=== PATIENT | female | born 1970 | race Caucasian/White ===

== ENCOUNTER 2024-11-13 14:34 | Inpatient (IN) | payer OTHER ==
[~2024-11-13] VITALS: Ht 167.6 cm; Wt 147.4 kg
[2024-11-13 16:54] LABS: BASOPHILS # (AUTO) 0.1 (0.0-0.1); BASOPHILS % 0.3 % (0.0-1.0); EOSINOPHILS # (AUTO) 0.2 (0.0-0.4); EOSINOPHILS % 1.2 % (0.0-6.0); HEMATOCRIT 37.3 % (34.2-44.1); HEMOGLOBIN 12.5 g/dL (12.0-16.0); LYMPHOCYTES # (AUTO) 0.9 (1.0-3.2); LYMPHOCYTES % 5.2 % (18.0-39.1); MEAN CORPUSCULAR HEMOGLOBIN 30.3 pg (28-32); MEAN CORPUSCULAR HGB CONC 33.5 g/dL (31-35); MEAN CORPUSCULAR VOLUME 90.5 fL (81-99); MONOCYTES # (AUTO) 0.8 (0.2-0.8); MONOCYTES % 4.8 % (4.4-11.3); NEUTROPHILS # (AUTO) 14.2 (2.1-6.9); NEUTROPHILS % 86.2 % (38.7-80.0); PLATELET COUNT 242 x10e3/uL (140-360); RED BLOOD COUNT 4.12 x10e6/uL (3.6-5.1); RED CELL DISTRIBUTION WIDTH 14.9 % (11.7-14.4)
[2024-11-13 17:09] LABS: INR 1.01; PROTHROMBIN TIME 13.9 seconds (11.9-14.5)
[2024-11-13 17:10] LABS: PARTIAL THROMBOPLASTIN TIME 28.2 seconds (23.8-35.5)
[2024-11-13 17:18] LABS: ALANINE AMINOTRANSFERASE 8 IU/L (0-55); ALBUMIN 2.3 g/dL (3.5-5.0); ALBUMIN/GLOBULIN RATIO 0.5 (0.8-2.0); ALKALINE PHOSPHATASE 91 IU/L (40-150); ANION GAP 15.2 mmol/L (8-16); BILIRUBIN,TOTAL 0.4 mg/dL (0.2-1.2); BLOOD UREA NITROGEN 18 mg/dL (7-26); BUN/CREATININE RATIO 19 (6-25); CALCIUM 8.9 mg/dL (8.4-10.2); CARBON DIOXIDE 16 mmol/L (22-29); CHLORIDE 106 mmol/L (98-107); CREATININE, SERUM 0.96 mg/dL (0.57-1.11); EST GLOMERULAR FILTRATION RATE 71 ML/MIN (>=60); GLUCOSE 120 mg/dL (74-118); MAGNESIUM 1.3 MG/DL (1.3-2.1); POTASSIUM 4.2 mmol/L (3.5-5.1); SODIUM 133 mmol/L (136-145); TOTAL PROTEIN 6.9 g/dL (6.5-8.1)
[2024-11-13 17:26] LABS: TROPONIN I < 0.001 ng/mL (0-0.300)
[2024-11-13] MEDS: Morphine 4mg INJECTION 4 MG/ML INJ IV STA (17:47)
[2024-11-13] MEDS: SODIUM CHLORIDE 0.9% 1000ML 1,000 ML IV STA ×2 (17:47→19:11)
[2024-11-13] MEDS: ONDANSETRON HCL INJ 2MG/ML 2ML 2 MG/ML VIAL IV STA (17:48)
[2024-11-13] MEDS: VANCOMYCIN 1.25GM/250 ML (PEG) 250 ML IV ONE (17:49)
[2024-11-13] MEDS ORDERED: IOPAMIDOL 370 MG/ML 100 ML INFUS..BTL INJ ONE (19:17)
[2024-11-13] MEDS: ACETAMINOPHEN 325 MG TAB PO PRN (19:25)
[2024-11-13] MEDS: SODIUM CHLORIDE 0.9% 1000ML 1,000 ML IV ONE (21:46)
[2024-11-13] MEDS: NOREPINEPHRINE 8 MG/D5W 250 ML 250 ML IV SCH (22:00)
[2024-11-13] MEDS ORDERED: SODIUM CHLORIDE 0.9% IV SCH (22:00)
[2024-11-13] MEDS: MUPIROCIN 2% OINT 22 GM TUBE TOP SCH (22:00)
[2024-11-13 22:55] VITALS: TEMP 98.4
[2024-11-13] MEDS: KETOROLAC TROMETHAMINE 30 MG/ML VIAL IV STA (23:21)
[2024-11-13] MEDS: SODIUM CHLORIDE 0.9% 1000ML 1,000 ML IV SCH (23:23)
[2024-11-13 23:26] VITALS: PULSE 75; RESP 20
[2024-11-13 23:45] VITALS: BP_SYST 92; BP_DIAS 49; BP_DIAS 67; PULSE 77; RESP 14; RESP 25; TEMP 98.2; O2SAT 94; O2SAT 97
[2024-11-13] MEDS: Morphine 4mg INJECTION 4 MG/ML INJ IV PRN (23:49)
[2024-11-14] VITALS (20 sets, daily range): BP systolic 87–117; BP diastolic 49–83; PULSE 70–91; RESP 14–28; TEMP 98.2–98.9; O2SAT 89–98
[2024-11-14] MEDS: VANCOMYCIN 1.25GM/250 ML (PEG) 250 ML IV SCH (03:33)
[2024-11-14] MEDS: VANCOMYCIN HCL 1.25 GM VIAL IV ONE (03:35)
[2024-11-14] MEDS: SODIUM CHLORIDE 0.9% 250ML 250 ML ONE (03:35)
[2024-11-14 06:41] LABS: BASOPHILS % 0.1 % (0.0-1.0); EOSINOPHILS # (AUTO) 0.2 (0.0-0.4); EOSINOPHILS % 1.2 % (0.0-6.0); HEMATOCRIT 33.2 % (34.2-44.1); HEMOGLOBIN 10.9 g/dL (12.0-16.0); LYMPHOCYTES % 6.5 % (18.0-39.1); MEAN CORPUSCULAR HEMOGLOBIN 30.2 pg (28-32); MEAN CORPUSCULAR HGB CONC 32.8 g/dL (31-35); MONOCYTES # (AUTO) 0.7 (0.2-0.8); MONOCYTES % 4.6 % (4.4-11.3); NEUTROPHILS # (AUTO) 12.6 (2.1-6.9); NEUTROPHILS % 85.6 % (38.7-80.0); PLATELET COUNT 205 x10e3/uL (140-360); RED BLOOD COUNT 3.61 x10e6/uL (3.6-5.1); RED CELL DISTRIBUTION WIDTH 15.1 % (11.7-14.4); WHITE BLOOD COUNT 14.75 x10e3/uL (4.8-10.8)
[2024-11-14 07:03] LABS: BILIRUBIN,TOTAL 0.5 mg/dL (0.2-1.2); CALCIUM 8.2 mg/dL (8.4-10.2); CREATININE, SERUM 0.81 mg/dL (0.57-1.11); TOTAL PROTEIN 5.7 g/dL (6.5-8.1)
[2024-11-14 07:24] LABS: ALBUMIN 1.9 g/dL (3.5-5.0); ALBUMIN/GLOBULIN RATIO 0.5 (0.8-2.0)
[2024-11-14] MEDS: SODIUM BICARBONATE 8.4% SYRING 50 ML in SODIUM CHLORIDE 0.45% 1,000 ML IV SCH (10:39)
[2024-11-14] MEDS: ONDANSETRON HCL INJ 2MG/ML 2ML 2 MG/ML VIAL IV PRN (17:23)
[2024-11-15] VITALS (25 sets, daily range): BP systolic 90–118; BP diastolic 53–73; PULSE 65–84; RESP 11–25; TEMP 97.5–98.5; O2SAT 93–100
[2024-11-15] MEDS: LACTATED RINGER'S 1,000 ML INJ SCH (09:48)
[2024-11-15] MEDS ORDERED: LIDOCAINE HCL 2% LOCAL INJ 5 ML SDV VIAL INJ ONE ×2 (12:43→13:40)
[2024-11-15] MEDS ORDERED: ETOMIDATE 40 MG/ 20ML VIAL IV ONE (12:43)
[2024-11-15] MEDS ORDERED: FENTANYL CITRATE/PF 100MCG/2 ML INJ ONE ×2 (12:43→13:24)
[2024-11-15] MEDS ORDERED: PROPOFOL IV EMULSION 10 MG/ML 20 ML VIAL ONE (12:43)
[2024-11-15] MEDS ORDERED: SUCCINYLCHOLINE CHLORIDE 20 MG/ML 10ML VIAL ONE (12:44)
[2024-11-15] MEDS ORDERED: EPHEDRINE SULFATE INJ 50 MG/ML VIAL ONE (13:06)
[2024-11-15] MEDS ORDERED: FAMOTIDINE 20 MG/2 ML VIAL IV ONE (13:10)
[2024-11-15] MEDS ORDERED: METOCLOPRAMIDE HCL 10 MG/2ML VIAL ONE (13:10)
[2024-11-15] MEDS ORDERED: ONDANSETRON HCL INJ 2MG/ML 2ML 2 MG/ML VIAL ONE (13:10)
[2024-11-15] MEDS: HYDROMORPHONE 1MG/1ML INJ ONE (14:11)
[2024-11-15] MEDS: HYDROCODONE/APAP 5MG-325MG TAB PO PRN (15:14)
[2024-11-16] VITALS (25 sets, daily range): BP systolic 62–116; BP diastolic 46–70; PULSE 65–80; RESP 13–24; TEMP 98–98.3; O2SAT 96–100
[2024-11-16 06:34] LABS: BASOPHILS % 0.4 % (0.0-1.0); EOSINOPHILS # (AUTO) 0.2 (0.0-0.4); EOSINOPHILS % 3.9 % (0.0-6.0); HEMATOCRIT 30.2 % (34.2-44.1); HEMOGLOBIN 9.7 g/dL (12.0-16.0); LYMPHOCYTES # (AUTO) 1.2 (1.0-3.2); LYMPHOCYTES % 26.3 % (18.0-39.1); MEAN CORPUSCULAR HEMOGLOBIN 29.7 pg (28-32); MEAN CORPUSCULAR HGB CONC 32.1 g/dL (31-35); MEAN CORPUSCULAR VOLUME 92.4 fL (81-99); MONOCYTES # (AUTO) 0.4 (0.2-0.8); MONOCYTES % 8.8 % (4.4-11.3); NEUTROPHILS # (AUTO) 2.7 (2.1-6.9); NEUTROPHILS % 58.6 % (38.7-80.0); PLATELET COUNT 209 x10e3/uL (140-360); RED BLOOD COUNT 3.27 x10e6/uL (3.6-5.1); RED CELL DISTRIBUTION WIDTH 14.6 % (11.7-14.4); WHITE BLOOD COUNT 4.57 x10e3/uL (4.8-10.8)
[2024-11-16 07:05] LABS: ALBUMIN 1.9 g/dL (3.5-5.0); ALBUMIN/GLOBULIN RATIO 0.5 (0.8-2.0); ANION GAP 10.7 mmol/L (8-16); BILIRUBIN,TOTAL 0.3 mg/dL (0.2-1.2); CALCIUM 8.2 mg/dL (8.4-10.2); CREATININE, SERUM 0.71 mg/dL (0.57-1.11); POTASSIUM 3.7 mmol/L (3.5-5.1); TOTAL PROTEIN 5.4 g/dL (6.5-8.1)
[2024-11-16] MEDS: HYDROMORPHONE 1MG/1ML INJ IV PRN (13:41)
[2024-11-16] MEDS: HYDROCODONE/APAP 7.5MG-325MG 1 EA TAB PO PRN (16:44)
[2024-11-17] VITALS (26 sets, daily range): BP systolic 91–136; BP diastolic 49–114; PULSE 63–81; RESP 10–24; TEMP 98–98.5; O2SAT 90–99
[2024-11-17] MEDS: SENNA-S TABLET PO SCH (08:34)
[2024-11-17] MEDS: POLYETHYLENE GLYCOL 3350 17 GM PACK PO SCH (08:34)
[2024-11-17] MEDS: HYDROCODONE/APAP 10MG-325MG TAB PO PRN (11:00)
[2024-11-17] MEDS: PANTOPRAZOLE SOD 40 MG TABEC PO SCH (17:11)
[2024-11-17] MEDS: Morphine 4mg INJECTION 4 MG/ML INJ IV PRN (17:52)
[2024-11-17] MEDS: KETOROLAC TROMETHAMINE 30 MG/ML VIAL IV PRN (18:31)
[2024-11-18] VITALS (12 sets, daily range): BP systolic 114–132; BP diastolic 67–90; PULSE 62–87; RESP 12–22; TEMP 97.8–98.6; O2SAT 94–100
[2024-11-18 07:01] LABS: EOSINOPHILS # (AUTO) 0.2 (0.0-0.4); EOSINOPHILS % 5.2 % (0.0-6.0); HEMATOCRIT 30.1 % (34.2-44.1); HEMOGLOBIN 9.8 g/dL (12.0-16.0); LYMPHOCYTES # (AUTO) 0.9 (1.0-3.2); LYMPHOCYTES % 30.8 % (18.0-39.1); MEAN CORPUSCULAR HEMOGLOBIN 29.4 pg (28-32); MEAN CORPUSCULAR HGB CONC 32.6 g/dL (31-35); MEAN CORPUSCULAR VOLUME 90.4 fL (81-99); MONOCYTES # (AUTO) 0.3 (0.2-0.8); MONOCYTES % 9.5 % (4.4-11.3); NEUTROPHILS # (AUTO) 1.6 (2.1-6.9); NEUTROPHILS % 52.2 % (38.7-80.0); PLATELET COUNT 290 x10e3/uL (140-360); RED BLOOD COUNT 3.33 x10e6/uL (3.6-5.1); RED CELL DISTRIBUTION WIDTH 14.1 % (11.7-14.4); WHITE BLOOD COUNT 3.05 x10e3/uL (4.8-10.8)
[2024-11-18 07:30] LABS: ALBUMIN 2.2 g/dL (3.5-5.0); ALBUMIN/GLOBULIN RATIO 0.6 (0.8-2.0); ANION GAP 13.6 mmol/L (8-16); BILIRUBIN,TOTAL 0.3 mg/dL (0.2-1.2); CALCIUM 8.5 mg/dL (8.4-10.2); CREATININE, SERUM 0.69 mg/dL (0.57-1.11); POTASSIUM 3.6 mmol/L (3.5-5.1); TOTAL PROTEIN 5.9 g/dL (6.5-8.1)
[2024-11-18] MEDS ORDERED: PANTOPRAZOLE SOD 40 MG TABEC PO SCH (07:30)
[2024-11-18] MEDS: GABAPENTIN 100 MG CAP PO SCH (12:03)
[2024-11-18] MEDS: MAGNESIUM/ALUMINUM/SIMETHICONE 30 ML UDC PO PRN (22:33)
[2024-11-19] VITALS (7 sets, daily range): BP systolic 117–122; BP diastolic 72–74; PULSE 66–74; RESP 12–19; TEMP 97.7–98; O2SAT 93–98
[2024-11-19] MEDS: Vancomycin IV 1 GM in SODIUM CHLORIDE 0.9% 250ML 250 ML IV SCH (08:00)
== END 2024-11-19 12:58 | disposition home or self-care (01) | DRG 871 ==
LOC: ER 15:41 → ERHOLD 17:45 → ICU 23:38
PROVIDERS: ADMIT Internal Medicine; ATTEND Internal Medicine
PROC: 3E03329 Introduction of Other Anti-infective into Peripheral Vein, Percutaneous Approach (ICD-10-PCS; 2024-11-13)
PROC: 02HV33Z Insertion of Infusion Device into Superior Vena Cava, Percutaneous Approach (ICD-10-PCS; 2024-11-14)
PROC: B548ZZA Ultrasonography of Superior Vena Cava, Guidance (ICD-10-PCS; 2024-11-14)
PROC: 0X9500Z Drainage of Left Axilla with Drainage Device, Open Approach (ICD-10-PCS; 2024-11-15)
PROC: 0X9500Z Drainage of Left Axilla with Drainage Device, Open Approach (ICD-10-PCS; principal; 2024-11-15 13:01)
DX: A41.02 Sepsis due to Methicillin resistant Staphylococcus aureus (principal); R65.21 Severe sepsis with septic shock; Z68.43 Body mass index [BMI] 50.0-59.9, adult; L02.412 Cutaneous abscess of left axilla; L02.213 Cutaneous abscess of chest wall; L03.313 Cellulitis of chest wall; L03.112 Cellulitis of left axilla; E87.29 Other acidosis; E66.01 Morbid (severe) obesity due to excess calories; E87.8 Other disorders of electrolyte and fluid balance, not elsewhere classified; I95.9 Hypotension, unspecified; S40.862A Insect bite (nonvenomous) of left upper arm, initial encounter; W57.XXXA Bitten or stung by nonvenomous insect and other nonvenomous arthropods, initial encounter; E16.2 Hypoglycemia, unspecified; D64.9 Anemia, unspecified; I10 Essential (primary) hypertension; F17.200 Nicotine dependence, unspecified, uncomplicated; K21.9 Gastro-esophageal reflux disease without esophagitis; K29.60 Other gastritis without bleeding; Z59.6 Low income
CPT/HCPCS: 36415; 36569; 71045; 71260; 80053; 80202; 83605; 83735; 84484; 85025; 85610; 85730; 87040; 87071; 87075; 87186; 87205; 93306; 94799; 99252; 99284; J0330; J1171; J1308; J1885; J2003; J2270; J2405; J2470; J2543; J2765; J7030; J7050; Q9967